=== PATIENT | male | born 1970 | race African-American/Black ===

== ENCOUNTER 2020-09-28 19:05 | Emergency (ER) | payer BC, OTHER ==
[2020-09-28 19:19] VITALS: BP 129/60; PULSE 72; TEMP 98.2; BMI 29.4
[2020-09-28] MEDS ORDERED: ACETAMINOPHEN 325 MG TABLET (FP) PO ONE (20:11)
[2020-09-28] MEDS ORDERED: ACETAMINOPHEN 325 MG TABLET (FP) ONE (20:14)
== END 2020-09-28 20:30 | disposition home or self-care (01) ==
LOC: FER 19:05
DX: S46.212A Strain of muscle, fascia and tendon of other parts of biceps, left arm, initial encounter (principal)
CPT/HCPCS: 99284-25

== ENCOUNTER 2020-10-09 08:18 | Day surgery (SDC) | payer OTHER ==
[2020-10-06 09:07] VITALS: BMI 28.7
[2020-10-09] MEDS ORDERED: MIDAZOLAM HCL 2 MG/2 ML SINGLE DOSE VIAL ONE (12:26)
[2020-10-09] MEDS ORDERED: ROPIVACAINE HCL 0.5% 30ML VIAL ONE (12:28)
[2020-10-09] MEDS ORDERED: ONDANSETRON 4 MG/2 ML VIAL IVPUSH PRN (12:45)
[2020-10-09] MEDS ORDERED: LACTATED RINGERS SOLUTION 1,000 ML IV SCH (12:45)
[2020-10-09] MEDS ORDERED: oxyCODONE HCL 5 MG TABLET PO PRN (12:45)
[2020-10-09] MEDS ORDERED: LIDOCAINE 1%/EPI 1:100000 (20 ML MULTI DOSE VIAL) ONE (13:43)
[2020-10-09 15:40] VITALS: TEMP 97.8
[2020-10-09 16:50] VITALS: BP 104/65; PULSE 64
== END 2020-10-09 16:53 | disposition home or self-care (01) ==
LOC: FASU 08:18
PROVIDERS: ATTEND Orthopaedic Surgery Sports Medicine
PROC: 0LU30JZ Supplement Right Upper Arm Tendon with Synthetic Substitute, Open Approach (ICD-10-PCS; principal; 2020-10-09 13:21)
PROC: 0LU30JZ Supplement Right Upper Arm Tendon with Synthetic Substitute, Open Approach (ICD-10-PCS; 2020-10-09 13:21)
PROC: 0RNK4ZZ Release Left Shoulder Joint, Percutaneous Endoscopic Approach (ICD-10-PCS; 2020-10-09 13:21)
DX: S46.812A Strain of other muscles, fascia and tendons at shoulder and upper arm level, left arm, initial encounter (principal); S43.432A Superior glenoid labrum lesion of left shoulder, initial encounter; S46.212A Strain of muscle, fascia and tendon of other parts of biceps, left arm, initial encounter; M75.42 Impingement syndrome of left shoulder; X58.XXXA Exposure to other specified factors, initial encounter; Y93.9 Activity, unspecified; Y92.9 Unspecified place or not applicable; Y99.9 Unspecified external cause status
CPT/HCPCS: 94760

== ENCOUNTER 2020-10-12 13:35 | Emergency (ER) | payer OTHER ==
[2020-10-12 13:54] VITALS: BP 115/82; PULSE 70; TEMP 98.3; BMI 29.0
[2020-10-12] MEDS ORDERED: CEPHALEXIN MONOHYDRATE 500 MG CAPSULE (UD) PO ONE (14:55)
[2020-10-12] MEDS ORDERED: CEPHALEXIN MONOHYDRATE 500 MG CAPSULE (UD) ONE (15:02)
== END 2020-10-12 15:15 | disposition home or self-care (01) ==
LOC: FER 13:35
DX: Z48.00 Encounter for change or removal of nonsurgical wound dressing (principal)
CPT/HCPCS: 99283-25

== ENCOUNTER 2021-01-25 00:43 | Emergency (ER) | payer OTHER ==
[2021-01-25 00:51] VITALS: BP 102/70; PULSE 67; TEMP 97.8; BMI 29.0
== END 2021-01-25 01:07 | disposition home or self-care (01) ==
LOC: FER 00:43
DX: R07.81 Pleurodynia (principal)
CPT/HCPCS: 99283-25